=== PATIENT | female | born 1960 | race Caucasian/White ===

== ENCOUNTER 2020-08-14 17:27 | Emergency (ER) | payer OTHER, BC, SELFPAY ==
--- NOTE | ~2020-08-14 | XR_ITS ---
EXAMINATION: XR hand LT min 3V DATE: 08/14/2020 17:53 INDICATION: Smashed third and fourth digits TECHNIQUE: Posteroanterior, oblique and lateral views of the left hand were obtained. COMPARISON: None. FINDINGS: Tuft fractures, minimally displaced at the third distal phalanx and mildly displaced and mildly commi nuted at the fourth distal phalanx. Alignment is otherwise normal. No other fractures identified. Naomie nt spaces are normal. Soft tissue swelling about the distal aspect of the third and fourth digits. Zheng ggestion of a possible nailbed injury at the fourth digit. IMPRESSION: 1. Tuft fractures at the left third and fourth distal phalanges. Correlate for associated nailbed inj ury which if present would render this equivalent of an open/compound fracture at increased risks of infection. Reviewed, dictated and finalized at location A. CIATE EDITOR IMPRESSION: 1. Tuft fractures at the left third and fourth distal phalanges. Correlate for associated nailbed injury which if present would render this equivalent of an o pen/compound fracture at increased risks of infection.
[2020-08-14 17:41] VITALS: BP 144/96; PULSE 85; RESP 18; TEMP 36.7; O2SAT 98
--- NOTE | 2020-08-14 17:44 | ED.UPPEXIN ---
HPI - Extremity Injury (Upper) General Chief Complaint: Extremity Injury, Upper Stated Complaint: Finger on l/hand injury Time Seen by Provider: 08/14/20 17:44 Source: patient and RN notes reviewed Mode of arrival: ambulatory Limitations: no limitations History of Present Illness HPI narrative: 59-year-old female who presents to [facility] care with injury to her left ring and middle fingers which occurred today at 1100 when she smashed her fingers in a [employer] machine today at her work. Patient does have noted injury to the 4th finger nail bed with some bleeding noted,nail has some bruising with stated throbbing type of discomfort to her injured fingers. The middle left finger tip has some bruising to the nail with swelling and bruising of both finger tips celestin aspect. Patient removed her wedding rings from her left ring finger. Patient states that she has applied ice to her fingers. She states that her tetanus shot is not up to date. MD complaint: injury to: left and finger (third and ring) Onset (ago): hour(s) (11:00 today) Other Extremity Injury: Left: fingers (middle and ring finger tip) Handedness: right Place: work Severity: moderate Severity scale (1-10): 5 (sharp and throbbing) Exacerbating factors: movement of extremity Context: crush (smashed in [employer] machine at work today) Associated symptoms: denies other symptoms Treatments prior to arrival: cold therapy Related Data Allergies Allergy/AdvReac Type Severity Reaction Status Date / Time No Known Allergies Allergy Verified 08/14/20 17:45 Review of Systems Review of Systems: Narrative: CONSTITUTIONAL: Denies fever, chills, or sweats. EYES: Denies visual changes, redness, or discharge. ENT: Denies rhinorrhea, congestion, sore throat, or otalgia. CARDIOVASCULAR: Denies chest pain, palpitations, or edema. RESPIRATORY: Denies cough or dyspnea. GASTROINTESTINAL: Denies abdominal pain, nausea, vomiting, or diarrhea. GENITOURINARY: Denies dysuria or hematuria. SKIN: Denies rash or itching,bleeding around nail bed of 4th finger. MUSCULOSKELETAL: Denies back pain, joint pain, or myalgia,positive for pain and swelling to distal regions of both third and fourth fingers with injury to 4th fingernail bed with small laceration at nail bed, also bruising of nail bed third and fourth fingers. NEUROLOGIC: Denies headache, numbness, or weakness. PSYCHIATRIC: Denies anxiety or depression. All systems reviewed & are unremarkable except as noted in HPI and below PMFSH Past Medical History Medical History (Updated 08/14/20 @ 18:36 by Damari Mata NP) Acoustic neuroma Status post gamma knife treatment acoustic neuroma Surgical History Surgical History (Updated 08/14/20 @ 18:27 by Damari Mata NP) Previous section Family History Family History (Updated 08/14/20 @ 18:28 by Damari Mata NP) Grandparent Diabetes mellitus Father Malignant neoplasm of prostate Social History Social History (Updated 08/14/20 @ 18:28 by Damari Mata NP) Smoking status: Former smoker Alcohol intake: current Alcohol use details: rare Substance use: never Living arrangements: with family Gender identity (if verbalized by the patient): Female Comments At time of signature, agree with nursing past medical, surgical, social and family history. There is no relevant family history pertinent to the presenting complaint Exam Narrative: Exam Narrative: GENERAL: Well-appearing, well-nourished, and in no acute distress. HEAD: Normocephalic, atraumatic. EYES: PERRLA and EOMI. ENT: Nares clear, no rhinorrhea or epistaxis. Mucous membranes moist. NECK: Supple. CHEST: Clear to auscultation. No respiratory distress. HEART: Regular rate and rhythm. No murmur heard. Normal peripheral pulses. ABDOMEN: Soft, nontender, nondistended, normal active bowel sounds. EXTREMITIES: Normal range of motion. No edema.Distal fingers of left third and fourth fingers bruised with swell
[2020-08-14] MEDS: TETANUS,DIPHTHERIA,AC PERTUSSIS ADULT (0.5 ML) BOOSTRIX IM (18:20)
== END 2020-08-14 18:49 | disposition home or self-care (01) ==
PROVIDERS: Emergency Provider Registered Nurse; PCP Family Medicine
DX: S62.633A Displaced fracture of distal phalanx of left middle finger, initial encounter for closed fracture (principal); S62.635B Displaced fracture of distal phalanx of left ring finger, initial encounter for open fracture; W31.89XA Contact with other specified machinery, initial encounter; S60.032A Contusion of left middle finger without damage to nail, initial encounter; S60.142A Contusion of left ring finger with damage to nail, initial encounter; Z23 Encounter for immunization
CPT/HCPCS: 11740; 29130 ×2; 73130; 90471; 90715; 99204; G0463